=== PATIENT | female | born 1940 | race Hispanic/Latino ===

== ENCOUNTER 2018-08-15 18:44 | Emergency (ER) | payer MEDICARE ==
[~2018-08-15] VITALS: Ht 170.2 cm; Wt 62.6 kg
[~2018-08-15 18:44] MED LIST: ASPIRIN81 MG PO; BENADRYL25 M1 PO; GABAPENTIN400 MG PO; LEVOTHYROXINE50 MCG PO; LIPITOR20 MG PO; MECLIZINE HCL12.5 MG PO; MELOXICAM15 MG PO; METFORMIN HCL500 M2 PO; METOPROLOL TART50 MG PO; NORCO 7.5-3251 EACH PO; PLAVIX75 MG PO; PROAIR HFA INH8.5 GM IN; RESTORIL30 MG PO; SAVELLA100 MG PO; VASOTEC10 MG PO; VITAMIN D31000 UNIT PO
[2018-08-15 19:17] VITALS: BP 136/72
== END 2018-08-15 19:20 | disposition home or self-care (01) ==
LOC: ER 18:44
DX: B02.9 Zoster without complications (principal); I73.9 Peripheral vascular disease, unspecified; G89.29 Other chronic pain; Z85.43 Personal history of malignant neoplasm of ovary; Z85.42 Personal history of malignant neoplasm of other parts of uterus
CPT/HCPCS: 99282

== ENCOUNTER → 2018-11-30 | Outpatient (CLI) | payer MEDICARE ==
--- NOTE | 2018-11-30 18:02 | Diagnostic Imaging Report ---
Radiographs of the left shoulder - 2 views HISTORY: Pain COMPARISON: None available. FINDINGS: Bones: No acute displaced fracture. Osseous alignment is within normal limits. Joints: Scattered degenerative change. No osseous erosion. Soft tissues: The soft tissues appear unremarkable. IMPRESSION: Scattered degenerative change. No osseous erosion. Signed by: Dr. Malvin Diaz M.D. on 11/30/2018 5:58 PM
--- NOTE | 2018-11-30 18:03 | Diagnostic Imaging Report ---
Radiographs of the lumbar spine HISTORY: Pain COMPARISON: None available. FINDINGS: Bones: No acute displaced fracture. Osseous alignment is within normal limits. Joints: Scattered degenerative change. No osseous erosion. No pars interarticularis defects. Soft tissues: The soft tissues appear unremarkable. IMPRESSION: Scattered degenerative change. No osseous erosion. Signed by: Dr. Malvin Diaz M.D. on 11/30/2018 5:59 PM
--- NOTE | 2018-11-30 18:04 | Diagnostic Imaging Report ---
Radiographs of the sacrum/coccyx HISTORY: Pain COMPARISON: None available. FINDINGS: Bones: No acute displaced fracture. Osseous alignment is within normal limits. Joints: Scattered degenerative change. No osseous erosion. Soft tissues: The soft tissues appear unremarkable. IMPRESSION: Scattered degenerative change. No osseous erosion. Signed by: Dr. Malvin Diza M.D. on 11/30/2018 6:00 PM
--- NOTE | 2018-11-30 18:05 | Diagnostic Imaging Report ---
Exam: KUB. Clinical History: Abdominal pain. Back pain Comparison: None Findings: Frontal view of the abdomen demonstrates a nonobstructive bowel gas pattern with copious retained stool. There are no suspicious calcifications.No acute bone abnormality. Impression: Findings which could be due to constipation. Signed by: Dr. Malvin Diaz M.D. on 11/30/2018 6:01 PM
== END ==
LOC: RAD 16:48
PROVIDERS: ATTEND Internal Medicine
DX: M43.07 Spondylolysis, lumbosacral region (principal); R10.30 Lower abdominal pain, unspecified; M19.012 Primary osteoarthritis, left shoulder
CPT/HCPCS: 72110; 72220; 74019

== ENCOUNTER → 2019-05-10 | Outpatient (CLI) | payer MEDICARE ==
--- NOTE | 2019-05-13 10:36 | Diagnostic Imaging Report ---
PROCEDURE: X-RAY MODIFIED BARIUM SWALLOW COMPARISON: None. INDICATION: Aspiration Radiation Details: Fluoroscopy time: 1.7 minutes Cumulative dose: 4.4 mGy DISCUSSION: Fluoroscopic examination was performed in conjunction with speech pathology during swallowing a variety of thin and thick liquid consistencies. Provided images demonstrate no laryngeal penetration or aspiration. CONCLUSION: Modified barium swallow demonstrating no laryngeal penetration or aspiration. Please refer to the speech pathology report for further details. Signed by: Zion Carty MD on 05/13/2019 10:33 AM
== END ==
LOC: DX 11:35
PROVIDERS: ATTEND Internal Medicine Critical Care Medicine
DX: J69.0 Pneumonitis due to inhalation of food and vomit (principal)
CPT/HCPCS: 74230

== ENCOUNTER → 2019-08-20 | Outpatient (CLI) | payer MEDICARE ==
--- NOTE | 2019-08-20 16:09 | Diagnostic Imaging Report ---
Bone Mineral Density, 08/20/2019. Clinical History: Postmenopausal, Osteoporosis Screening Comparison: None. Findings: Bone Mineral Density Measurement (BMD) - Lumbar Spine: 1.022 gm/cm2 Left Femoral Neck: 0.551 gm/cm2 Standard Deviation as compared to the young adult population (T -score)- Lumbar Spine: -0.2 Left Femoral Neck: -2.7 Standard Deviation as compared to the age matched controls (Z-score)- Lumbar Spine: 2.3 Mean Femoral Neck: -0.5 IMPRESSION: These findings are consistent with a normal bone mineral density of the lumbar spine. There is no increased risk of an osteoporotic fracture of the lumbar spine as compared to the young adult population. 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 There is greater than a 2 times increased risk of an osteoporotic fracture of the femoral necks as compared to the young adult population. Diagnostic criteria (World Health Organization)- Normal: BMD measurement less than one standard deviation from young adult population Osteopenia: BMD measurement between 1 and 2.5 standard deviations below Osteoporosis: BMD measurement greater than 2.5 standard deviations below Severe osteoporosis: Osteoporosis and one or more fragility fractures Signed by: Angel Mcintyre MD on 08/20/2019 4:07 PM
--- NOTE | 2019-08-26 09:09 | Diagnostic Imaging Report ---
#[id number] - MGSCRBIL #BILATERAL DIGITAL SCREENING MAMMOGRAM WITH CAD: 08/20/2019 CLINICAL: Routine screening. No prior exams were available for comparison. Current study contains 6 films. The tissue of both breasts is predominantly fatty. Current study was also evaluated with a Computer Aided Detection (CAD) system. Benign appearing calcifications are noted bilaterally. No significant masses, calcifications, or other findings are seen in either breast. IMPRESSION: BENIGN There is no mammographic evidence of malignancy. A 1 year screening mammogram is recommended. The patient will be notified by letter of the results. RANDAL EDWARDS M.D. ct/penrad:08/23/2019 16:03:15 News Production Assistant: Mar DENNISON(Roberta)(Ander), [facility] letter sent: Normal Exam Mammogram BI-RADS: 2 Benign
== END ==
LOC: MAMMO 14:10
PROVIDERS: ATTEND Internal Medicine
DX: Z12.31 Encounter for screening mammogram for malignant neoplasm of breast (principal); M85.80 Other specified disorders of bone density and structure, unspecified site
CPT/HCPCS: 77067; 77080